=== PATIENT | female | born 1970 | race Caucasian/White ===

== ENCOUNTER 2025-01-21 08:01 | Outpatient (CLI) | payer MEDICARE, SELFPAY ==
--- NOTE | ~2025-01-21 | DEXA_ITS ---
Bone Density Report Name: ROGERS FIGUEROA Age: 54 Sex: Female Ethnicity: White Date of : 1970 Indication: screening for osteoporosis; parental hip fracture; inflammatory bowel disease; Referring Provider: GURDEEP UHDSON Study: Bone densitometry was performed. Exam Date: January 21, 2025 Accession number: [id number] Bone Density: Region BMD T-score Z-score Classification AP Spine(L1-L4) 1.066 0.2 1.2 Normal Femoral Neck (Left) 0.810 -0.4 0.7 Normal Total Hip (Left) 0.936 0.0 0.6 Normal Femoral Neck (Right) 0.817 -0.3 0.8 Normal Total Hip (Right) 0.954 0.1 0.8 Normal Total Hip Mean 0.945 0.1 0.7 Normal World Health Organization criteria for BMD impression classify patients as: Normal (T-score at or above -1.0), Osteopenia (T-score between -1.0 and -2.5), or Osteoporosis (T-score at or below -2.5). 10-year Fracture Risk: FRAX not reported because: Premenopausal woman All T-scores for Spine Total, Hip Total, Femoral Neck at or above -1.0 Clinical Information Provided by Patient: Parent has had a hip fracture Has used the following medications: seng Has the following medical conditions: Inflammatory bowel diseases, Type 2 DM, lupus, HBP, fibromyalgia Patient maximum height was 55 No regular weight bearing exercise Does not regularly consume dairy products Drinks caffeinated beverages Onset of menses at age 13 Premenopausal Number of children 0 Missed period for more than 6 months in a row Impression: The patient's bone mass is within expected range for age, gender and ethnicity. The patient has risk factors, including: parental hip fracture. Discussion: BONE DENSITY IS WITHIN EXPECTED LIMITS FOR AGE, SEX AND RACE. Bone density is within expected limits for age, sex and race at all sites measured. The patient should follow a healthful lifestyle (good nutrition with adequate calcium and vitamin D, and appropriate weight-bearing exercise). Follow-Up: Consider repeating this study in 5 years or sooner if there is some new clinical indication. Reported by: MARTINA on 01/21/2025 1:45:00 PM. Reviewed, dictated and finalized at location A.
== END 2025-01-21 08:02 | disposition home or self-care (01) ==
PROVIDERS: PCP Nurse Practitioner Family; Visit Provider Obstetrics & Gynecology Gynecology
DX: Z13.820 Encounter for screening for osteoporosis (principal); Z78.0 Asymptomatic menopausal state
CPT/HCPCS: 77080